=== PATIENT | male | born 1960 | race Caucasian/White ===

== ENCOUNTER 2024-08-02 18:01 | Inpatient (IN) | payer MEDICAID, OTHER ==
[~2024-08-02] VITALS: Ht 170.2 cm; Wt 90.0 kg
--- NOTE | 2024-08-02 18:32 | ED.PDOC ---
History of present illness HPI Comments 64y M who presents to the ED for chief complaint of hyperglycemia. Pt states he has been out of his diabetes medications for the past 1 month and states over this time period, he has been having increased weakness, malaise, dehydration and nausea. Pt now in the ED, has noted accu check after multiple measurements is noted to be 467 and 461. Pt in the ED, otherwise denies chest pain, shortness of breath, diaphoresis, palpitations, nausea, vomiting, fever, cough, or chills. Pt otherwise denies any other symptoms at this time. Chief Complaint: Hyperglycemia Time Seen by MD: 18:26 History of present illness: Nurses Notes, Medications, Allergies Allergies: Coded Allergies: NO KNOWN ALLERGIES (Unverified , 08/02/24) Information Source: Patient Mode of Arrival: Ambulatory Brought in by: self Timing: Hours Duration: Since onset Prehospital treatment: None [place]: None History of: Diabetes, Insulin use, Oral hypoglycemic use Modifying factors: Nothing Associated signs and symptoms: Nausea Past Medical History PAST MEDICAL HISTORY: DM Surgical History (Other): eye surgery Family History Family History: Family hx of Cancer Social History Smoker: Non-Smoker Alcohol: Occasionally Drugs: Denies Drug Use Lives In: Home Constitutional: reports: malaise, weakness; denies: chills, diaphoresis, fatigue, fever, sweats, others EENTM: denies: blurred vision, double vision, ear bleeding, ear discharge, ear drainage, ear pain, ear ringing, eye pain, eye redness, hearing loss, mouth pain, mouth swelling, nasal discharge, nose bleeding, nose congestion, nose pain, photophobia, tearing, throat pain, throat swelling, voice changes, others Respiratory: denies: cough, hemoptysis, orthopnea, SOB at rest, shortness of breath, SOB with excertion, stridor, wheezing, others Cardiovascular: denies: chest pain, dizzy spells, diaphoresis, Dyspnea on exertion, edema, irregular heart beat, left arm pain, lightheadedness, palpitations, PND, syncope, others Gastrointestinal: reports: nausea; denies: abdomen distended, abdominal pain, blood streaked bowels, constipated, diarrhea, dysphagia, difficulty swallowing, hematemesis, melena, poor appetite, poor fluid intake, rectal bleeding, rectal pain, vomiting, others Genitourinary: denies: burning, dysuria, flank pain, frequency, hematuria, incontinence, penile discharge, penile sore, pain, testicle pain, testicle swelling, urgency, others Neurological: denies: dizziness, fainting, headache, left sided numbness, left sided weakness, numbness, paresthesia, pre-existing deficit, right sided numbness, right sided weakness, seizure, speech problems, tingling, tremors, weakness, others Musculoskeletal: denies: back pain, gout, joint pain, joint swelling, muscle pain, muscle stiffness, neck pain, others Integumetry: denies: bruises, change in color, change in hair/nails, dryness, laceration, lesions, lumps, rash, wounds, others Allergic/Immunocompromised: denies: Difficulty Healing, Frequent Infections, Hives, Itching, others Hematologic/Lymphatic: denies: anemia, blood clots, easy bleeding, easy bruising, swollen glands, others Endocrine: reports: unexplained weight loss; denies: excessive hunger, excessive sweating, excessive thirst, excessive urination, flushing, intolerance to cold, intolerance to heat, unexplained weight gain, others Psychiatric: denies: anxiety, bipolar disorder, depression, hopeless, panic disorder, schizophrenia, sleepless, suicidal, others All Other Systems: Reviewed and Negative Physical Exam General Appearance: Moderate Distress HEENT: Normal ENT Inspection, Pharynx Normal, TMs Normal Neck: Full Range of Motion, Non-Tender, Normal, Normal Inspection Respiratory: Chest Non-Tender, Lungs Clear, No Accessory Muscle Use, No Respiratory Distress, Normal Breath Sounds Cardiovascular: No Edema, No JVD, No Murmur, No Gallop, Normal Peripheral Pulses, Regular Rate/Rhythm Breast Exam: Deferred Gastrointestinal: No Organomegaly, Non Tender, No Pulsatile Mass, Normal Bowel Sounds, Soft Genitalia: Deferred Pelvic: Deferred Rectal: Deferred Extremities: No calf tenderness, Normal capillary refill, Normal inspection, Normal range of motion, Non-tender, No pedal edema Musculoskeletal : Apperance: Normal Neurologic: Alert, chief transfer and pumphouse operator II-XII nml as Tested, No Motor Deficits, Normal Affect, Normal Mood, No Sensory Deficits Cerebellar Function: Normal Reflexes: Normal Skin: Dry, Normal Color, Warm Lymphatic: No Adenopathy Was a procedure done? Was a procedure done?: No Differential Diagnosis (DM) Differential Diagnosis: Dehydration, DKA, Electrolyte Abnormality, Encephalopathy, Hyperglycemia, Hyperosmolar State X-Ray, Labs, Meds, VS Vital Signs Date Time Temp Pulse Resp B/P (MAP) Pulse Ox O2 Delivery O2 Flow Rate FiO2 08/02/24 19:45 98.2 92 20 143/88 (106) 95 98.2 08/02/24 18:17 98.2 107 18 132/99 (110) 92 98.2 Lab Test 08/02/24 18:28 08/02/24 18:17 08/02/24 18:12 08/02/24 18:11 Range/Units White Blood Count 9.3 4.4-10.8 10^3/uL Red Blood Count 5.08 4.5-5.90 10^6/uL Hemoglobin 16.2 13.5-17.5 g/dL Hematocrit 46.0 41.0-53.0 % Mean Corpuscular Volume 90.4 80.0-100.0 fL Mean Corpuscular Hemoglobin 31.9 28.0-32.0 pg Mean Corpuscular Hemoglobin Concent 35.2 32.0-36.0 g/dL Red Cell Distribution Width 14.1 11.8-14.3 % Platelet Count 224 140-450 10^3/uL Mean Platelet Volume 9.7 6.9-10.8 fL Neutrophils (%) (Auto) 66.3 37.0-80.0 % Lymphocytes (%) (Auto) 24.6 10.0-50.0 % Monocytes (%) (Auto) 7.4 0.0-12.0 % Eosinophils (%) (Auto) 0.4 0.0-7.0 % Basophils (%) (Auto) 1.3 0.0-2.0 % Neutrophils # (Auto) 6.2 1.6-8.6 10 ^3/uL Lymphocytes # (Auto) 2.3 0.4-5.4 10 ^3/uL Monocytes # (Auto) 0.7 0-1.3 10 ^3/uL Eosinophils # (Auto) 0 0-0.8 10 ^3/uL Basophils # (Auto) 0.1 0-0.2 10 ^3/uL Nucleated Red Blood Cells 0.0 % Sodium Level 134 L 136-145 mmol/L Potassium Level 3.8 3.5-5.1 mmol/L Chloride Level 97 L 98-107 mmol/L Carbon Dioxide Level 26 20-31 mmol/L Anion Gap 11 5-15 Blood Urea Nitrogen 22 9-23 mg/dL Creatinine 1.32 H 0.700-1.30 mg/dL Glomerular Filtration Rate Calc 61 >90 mL/min BUN/Creatinine Ratio 16.7 10.0-20.0 Serum Glucose 497 *H 74-106 mg/dL Calcium Level 10.6 H 8.7-10.4 mg/dL Urine Color Light-yellow Yellow Urine Clarity Clear Clear Urine pH 5.5 5.0-9.0 Urine Specific [place] 1.028 1.001-1.035 Urine Protein Negative Negative Urine Ketones Negative Negative Urine Blood Negative Negative /uL Urine Nitrite Negative Negative Urine Bilirubin Negative Negative Urine Urobilinogen Normal Negative mg/dL Urine Leukocyte Esterase Negative Negative /uL Urine RBC <1 0 - 3 /hpf Urine Microscopic WBC < 1 0-3 /HPF Urine Squamous Epithelial Cells None seen <5 /hpf Urine Bacteria None seen None Seen /hpf Urine Glucose 4+ H Normal mg/dL POC Glucose 461 *H 467 *H 70-106 mg/dl Current Medications Medications (Trade) Dose Ordered Sig/Lady Route Start Time Stop Time Status Last Admin Sodium Chloride 1,000 ml @ 1,000 mls/hr Q1H ONCE IV 08/02/24 18:30 08/02/24 19:29 DC 08/02/24 19:48 Insulin Human Regular (InsuLIN R) 5 units ONCE ONCE IV 08/02/24 18:30 08/02/24 18:31 DC 08/02/24 19:58 The urine test is negative. The patient was given a bolus of normal saline at 1 L bolus The patient was given insulin 5 units IV push The patient was hyperglycemic at 497 The chemistry panel shows a creatinine of 1.32 The patient's CBC is within normal limits. At this time, the patient was being admitted The patient was glucose remains elevated and we will continue to monitor the patient's diabetes Images Reviewed?: Images reviewed and evaluated by me Time of 1ST Reevaluation: 19:00 Reevaluation 1ST: Unchanged Patient Education/Counseling: Diagnosis, Treatment, Prognosis Family Education/Counseling: No Family Present Departure 1 Departure Time of Disposition: 20:36 Impression: Primary Impression: Uncontrolled diabetes mellitus Qualified Codes: E13.65 - Other specified diabetes mellitus with hyperglyce luz Disposition: 09 ADMITTED INPATIENT Admit to: Tele Condition: Fair Critical Care Note Critical Care Time?: No Stability Stability form required: Yes Unstable for transfer: Telemetry monitoring (Telemetry monitoring required), ED Physician Assesment (Clinical assesment) Heart Score Heart Score: Heart Score Response (Comments) Value History N/A 0 EKG N/A 0 Age N/A 0 Risk Factors N/A 0 Troponin N/A 0 Total 0 I personally scribed for JEAN GUZMAN MD ([email or web address]) on 08/02/24 at 18:31. Electronically submitted by Medina Fan ([email or web address]). JEAN GUZMAN MD August 02, 2024 18:31
[2024-08-02 18:51] LABS: Basophils # (auto) 0.1 10 ^3/uL (0-0.2); Basophils % (auto) 1.3 % (0.0-2.0); Eosinophils # (auto) 0 10 ^3/uL (0-0.8); Eosinophils % (auto) 0.4 % (0.0-7.0); Hemoglobin 16.2 g/dL (13.5-17.5); Lymphocytes # (auto) 2.3 10 ^3/uL (0.4-5.4); Lymphocytes % (auto) 24.6 % (10.0-50.0); Mean Corpuscular Hemoglobin 31.9 pg (28.0-32.0); Mean Corpuscular Hgb Conc. 35.2 g/dL (32.0-36.0); Mean Corpuscular Volume 90.4 fL (80.0-100.0); Monocytes # (auto) 0.7 10 ^3/uL (0-1.3); Monocytes % (auto) 7.4 % (0.0-12.0); Neutrophils # (auto) 6.2 10 ^3/uL (1.6-8.6); Neutrophils % (auto) 66.3 % (37.0-80.0); Platelet Count (auto) 224 10^3/uL (140-450); Red Blood Cells 5.08 10^6/uL (4.5-5.90); Red Cell Distribution Width 14.1 % (11.8-14.3); White Blood Cell 9.3 10^3/uL (4.4-10.8)
[2024-08-02 19:00] LABS: Potassium 3.8 mmol/L (3.5-5.1)
[2024-08-02 19:01] LABS: Anion Gap 11 (5-15); Carbon Dioxide 26 mmol/L (20-31)
[2024-08-02 19:06] LABS: BUN/Creatinine Ratio 16.7 (10.0-20.0); Blood Urea Nitrogen 22 mg/dL (9-23)
[2024-08-02 19:20] LABS: Calcium 10.6 mg/dL (8.7-10.4); Chloride 97 mmol/L (98-107); Sodium 134 mmol/L (136-145)
[2024-08-02 19:26] LABS: Glucose 497 mg/dL (74-106)
[2024-08-02 19:42] LABS: Urine Bacteria None Seen /hpf (None Seen)
[2024-08-02] MEDS: SODIUM CHLORIDE 0.9% 1,000 ML IV ONE (19:48)
[2024-08-02] MEDS: InsuLIN REG 1unit/0.01ml Soln (100units/ml) IV ONE (19:58)
[2024-08-02 20:01] LABS: Urine Blood Negative /uL (Negative); Urine Clarity Clear (Clear); Urine Color Light-Yellow (Yellow); Urine Protein, UAD Negative (Negative); Urine Specific Gravity 1.028 (1.001-1.035); Urine Squamous Epithelial Cell None Seen /hpf (<5); Urine Urobilinogen Normal (Negative); Urine WBC < 1 /HPF (0-3); Urine pH 5.5 (5.0-9.0)
[2024-08-02] MEDS ORDERED: DEXTROSE (50%) 50ML SYRG IV PRN (20:45)
[2024-08-02] MEDS ORDERED: ACETAMINOPHEN 325 MG TAB PO PRN (20:45)
[2024-08-02] MEDS ORDERED: DOCUSATE SOD 100 MG CAP PO PRN (20:45)
[2024-08-02] MEDS ORDERED: ONDANSETRON HCL 4 MG/2 ML VIAL IV PRN (20:45)
--- NOTE | 2024-08-02 21:06 | DVHHP2 ---
History of Present Illness Reason for Visit: Diabetes mellitus with hyperglycemia History of Present Illness The patient is a 64-year-old male with past medical history of diabetes mellitus who presented to [facility] ED with complaint of hyperglycemia. Patient reports he has been out of his diabetic medications for the past 1 month and non experiencing increased weakness, malaise, dehydration, nausea, getting worse that prompted this visit. Patient was seen and evaluated in the ED, laboratory data shows WBC 9.3, platelets 224, sodium 134, potassium 3.8, BUN 22, creatinine 1.32, glucose 497, calcium 10.6. Patient was given regular insulin 5 units subQ, please see medication orders section in the computer. On my assessment, patient denied chest pain, no headache, no dizziness, no diaphoresis, no blurry vision, no shortness of breath, no nausea, no vomiting, no fever, no chills. Patient was admitted for further evaluation and medical management. Past Medical History DM Past Surgical History Eye surgery Family History Reviewed, noncontributory to the management of this case. Past Social History The patient lives at home, denies smoking, alcohol or illicit drugs abuse. Review of Systems Constitutional: Yes: Weakness, Malaise; No: Fever, Chills, Sweats, Other Eyes: No: Pain, Vision change, Conjunctivae inflammation, Eyelid inflammation, Other, Redness ENT: No: Ear pain, Ear discharge, Nose pain, Nose discharge, Nose congestion, Mouth pain, Mouth swelling, Throat pain, Throat swelling, Other Respiratory: No: Cough, Dry, Shortness of breath, SOB with excertion, Wheezing, Hemoptysis, Pleuritic Pain, Sputum, Wheezing, Other Cardiovascular: No: Chest Pain, Palpitations, Orthopnea, Paroxysmal Noc. Dys pnea, Edema, Lt Headedness, Other Gastrointestinal: Nausea; No: Vomiting, Abdominal Pain, Diarrhea, Constipation, Melena, Hematochezia, Other Genitourinary: No Dysuria, No Frequency, No Incontinence, No Hematuria, No Retention, No Other Musculoskeletal: No: other, neck pain, shoulder pain, arm pain, back pain, hand pain, leg pain, foot pain Skin: No: Rash, Lesions, Jaundice, Bruising, Other Neurological: No: Weakness, Numbness, Incoordination, Change in speech, Confusion, Seizures, Other Allergies: Coded Allergies: NO KNOWN ALLERGIES (Unverified , 08/02/24) Medications Current Medications Medications Dose Ordered Sig/Lady Route Start Time Stop Time Status Last Admin Dose Admin Diagnostic Test (Pha) 1 strip IQ4HR 08/03/24 00:00 Insulin Human Regular IQ4HR SC 08/03/24 00:00 Dextrose 50 ml UD PRN IV 08/02/24 20:45 Sodium Chloride 1,000 ml @ 60 mls/hr [id number] IV 08/02/24 20:45 Acetaminophen/ Hydrocodone Bitart 1 tab Q4HP PRN PO 08/02/24 20:45 Ondansetron HCl 4 mg Q4HP PRN IV 08/02/24 20:45 Docusate Sodium 100 mg BIDPRN PRN PO 08/02/24 20:45 Acetaminophen 650 mg Q6HP PRN PO 08/02/24 20:45 Exam Vital Signs Vital Signs Date Time Temp Pulse Resp B/P (MAP) Pulse Ox O2 Delivery O2 Flow Rate FiO2 08/02/24 19:45 98.2 92 20 143/88 (106) 95 98.2 08/02/24 19:45 Room Air* 0 21 General Appearance: Alert, Oriented X3, Cooperative, No acute distress HEENT: Atraumatic, PERRLA, EOMI, Mucous membr. moist/pink Respiratory: Clear to auscultation, Normal air movement Cardiovascular: Regular rate, Normal S1, Normal S2, No murmurs Abdominal: Normal bowel sounds, Soft, No tenderness, No hepatospenomegaly, No masses Extremities: No clubbing, No cyanosis, No edema, Normal pulses, No tenderness/swelling Skin: No rashes, No breakdown, No significant lesion Neuro: Normal gait, Normal speech, Strength at 5/5 X4 ext, Normal tone, Sensation intact, Cranial nerves 3-12 NL, Reflexes 2+ Psych/Mental Status: Mental status NL, Mood NL Labs/Xrays Labs Test 08/02/24 20:38 08/02/24 18:28 08/02/24 18:17 Range/Units POC Glucose 377 H 70-106 mg/dl White Blood Count 9.3 4.4-10.8 10^3/uL Red Blood Count 5.08 4.5-5.90 10^6/uL Hemoglobin 16.2 13.5-17.5 g/dL Hematocrit 46.0 41.0-53.0 % Mean Corpuscular Volume 90.4 80.0-100.0 fL Mean Corpuscular Hemoglobin 31.9 28.0-32.0 pg Mean Corpuscular Hemoglobin Concent 35.2 32.0-36.0 g/dL Red Cell Distribution Width 14.1 11.8-14.3 % Platelet Count 224 140-450 10^3/uL Mean Platelet Volume 9.7 6.9-10.8 fL Neutrophils (%) (Auto) 66.3 37.0-80.0 % Lymphocytes (%) (Auto) 24.6 10.0-50.0 % Monocytes (%) (Auto) 7.4 0.0-12.0 % Eosinophils (%) (Auto) 0.4 0.0-7.0 % Basophils (%) (Auto) 1.3 0.0-2.0 % Neutrophils # (Auto) 6.2 1.6-8.6 10 ^3/uL Lymphocytes # (Auto) 2.3 0.4-5.4 10 ^3/uL Monocytes # (Auto) 0.7 0-1.3 10 ^3/uL Eosinophils # (Auto) 0 0-0.8 10 ^3/uL Basophils # (Auto) 0.1 0-0.2 10 ^3/uL Nucleated Red Blood Cells 0.0 % Sodium Level 134 L 136-145 mmol/L Potassium Level 3.8 3.5-5.1 mmol/L Chloride Level 97 L 98-107 mmol/L Carbon Dioxide Level 26 20-31 mmol/L Anion Gap 11 5-15 Blood Urea Nitrogen 22 9-23 mg/dL Creatinine 1.32 H 0.700-1.30 mg/dL Glomerular Filtration Rate Calc 61 >90 mL/min BUN/Creatinine Ratio 16.7 10.0-20.0 Serum Glucose 497 *H 74-106 mg/dL Calcium Level 10.6 H 8.7-10.4 mg/dL Urine Color Light-yellow Yellow Urine Clarity Clear Clear Urine pH 5.5 5.0-9.0 Urine Specific [place] 1.028 1.001-1.035 Urine Protein Negative Negative Urine Ketones Negative Negative Urine Blood Negative Negative /uL Urine Nitrite Negative Negative Urine Bilirubin Negative Negative Urine Urobilinogen Normal Negative mg/dL Urine Leukocyte Esterase Negative Negative /uL Urine RBC <1 0 - 3 /hpf Urine Microscopic WBC < 1 0-3 /HPF Urine Squamous Epithelial Cells None seen <5 /hpf Urine Bacteria None seen None Seen /hpf Urine Glucose 4+ H Normal mg/dL Assessment/Plan Assessment/Plan Uncontrolled diabetes mellitus Other specified diabetes mellitus with hyperglycemia Plan 1. Admit to telemetry unit 2. Breathing treatment 3. Pain control management 4. Management of fluids and electrolytes 5. Consultation for hospitalist 6. Diagnostic tests chest x-ray 7. DVT prophylaxis on SCDs 8. Repeat labs hemoglobin A1c, CBC, CMP in a.m. 9. Continue with current medical management 10. Treatment plan discussed with patient and RN. Patient verbalized understanding. Plan discussed with: Patient, Other (RN) My Orders Orders - CRISTIANE MARES DNP Procedure Category Date Status Time Hemoglobin A1c LAB 08/02/24 In Process 20:44 Consistent DIET 08/03/24 Transmitted Carb(Ccho)Diabetes Breakfast Glucose Blood PHA 08/03/24 In Process (Accu-Chek Comfort 00:00 Insulin R (Human) PHA 08/03/24 In Process (Insulin R) 00:00 Dextrose 50% Syringe PHA 08/02/24 In Process 20:45 Allergies NOLA 08/02/24 In Process 20:44 Code Status CODE 08/02/24 Transmitted 20:44 Sodium Chloride 0.9% PHA 08/02/24 In Process 20:45 Oxygen Per Hour RT 08/02/24 Transmitted 20:44 Hydrocodone-Acet PHA 08/02/24 In Process 5/325mg Tab ([place] 20:45 Ondansetron Hcl PHA 08/02/24 In Process (Zofran) 20:45 Docusate Sodium PHA 08/02/24 In Process Capsule (Colace 20:45 Complete Blood Count LAB 08/03/24 Verified 04:00 Comprehensive LAB 08/03/24 Verified Metabolic Panel 04:00 Condition: Serious NOLA 08/02/24 In Process 20:44 Acetaminophen Tablet PHA 08/02/24 In Process (Tylenol Tablet) 20:45 Bedrest With Bathroom NOLA 08/02/24 In Process Privileg 20:44 Sequential NOLA 08/02/24 In Process Compression Device Admit ADMIT 08/02/24 Transmitted 21:03 Nitroglycerin PHA 08/02/24 Transmitted Sublingual (Ntrostat 21:15 Morphine Sulfate PHA 08/02/24 Transmitted Injection 21:15 Notify Of Changes NOLA 08/02/24 In Process From Base 21:03 Sample Finisher For [facility] 08/02/24 In Process 24 Hours 21:03 Emergency Dysrhythmia [facility] 08/02/24 In Process Protocol 21:03 Rhythm Strips Once [facility] 08/02/24 In Process Every Shift 21:03 Oxygen By Nasal RT 08/02/24 Transmitted Cannula 21:03 Problem List: (1) Uncontrolled diabetes mellitus (2) Other specified diabetes mellitus with hyperglycemia Date of Service: August 02, 2024 Billing Provider: CRISTIANE MARES DNP Common Visit Codes: [id number] INP/OBS CARE (HIGH) CRISTIANE MARES DNP August 02, 2024 21:06
[2024-08-02] MEDS ORDERED: MORPHINE SULFATE INJ 2 MG/ml SYRG IV PRN (21:15)
[2024-08-02] MEDS ORDERED: NITROGLYCERIN 0.4 MG SL TAB SL PRN (21:15)
[2024-08-02] MEDS: SODIUM CHLORIDE 0.9% 1,000 ML IV SCH (21:31)
[2024-08-03] MEDS: InsuLIN REG 1unit/0.01ml Soln (100units/ml) SC SCH (00:13)
[2024-08-03] MEDS: ACCU-CHEK COMFORT CURVE STRIP VI SCH (00:13)
[2024-08-03] MEDS: HYDROcodone-ACET 5/325MG TAB PO PRN (00:23)
[2024-08-03] MEDS ORDERED: GLIP10TA9 PO ×2 (00:26→10:50)
[2024-08-03] MEDS ORDERED: METF-372 PO ×2 (00:26→10:50)
[2024-08-03 01:01] VITALS: BP 129/73; PULSE 78; RESP 18; TEMP 97.9; O2SAT 93
[2024-08-03 05:00] VITALS: BP 113/72; PULSE 70; RESP 18; TEMP 97.9; O2SAT 94
[2024-08-03 06:15] LABS: Basophils # (auto) 0 10 ^3/uL (0-0.2); Basophils % (auto) 0.4 % (0.0-2.0); Eosinophils # (auto) 0.1 10 ^3/uL (0-0.8); Eosinophils % (auto) 1.2 % (0.0-7.0); Hematocrit 41.4 % (41.0-53.0); Hemoglobin 14.3 g/dL (13.5-17.5); Lymphocytes # (auto) 2.7 10 ^3/uL (0.4-5.4); Lymphocytes % (auto) 33.3 % (10.0-50.0); Mean Corpuscular Hemoglobin 31.2 pg (28.0-32.0); Mean Corpuscular Hgb Conc. 34.7 g/dL (32.0-36.0); Mean Corpuscular Volume 89.9 fL (80.0-100.0); Monocytes # (auto) 0.7 10 ^3/uL (0-1.3); Monocytes % (auto) 8.4 % (0.0-12.0); Neutrophils # (auto) 4.6 10 ^3/uL (1.6-8.6); Neutrophils % (auto) 56.7 % (37.0-80.0); Platelet Count (auto) 195 10^3/uL (140-450); Red Cell Distribution Width 14.3 % (11.8-14.3); White Blood Cell 8.1 10^3/uL (4.4-10.8)
[2024-08-03 06:23] LABS: Alanine Aminotransferase 29 U/L (7-40); Alkaline Phosphatase 71 U/L (46-116); Anion Gap 11 (5-15); BUN/Creatinine Ratio 15.9 (10.0-20.0); Blood Urea Nitrogen 11 mg/dL (9-23); Carbon Dioxide 26 mmol/L (20-31); Chloride 103 mmol/L (98-107); Sodium 140 mmol/L (136-145); Total Protein 6.8 g/dL (5.7-8.2)
[2024-08-03 06:24] LABS: Albumin 4.3 g/dL (3.2-4.8); Aspartate Aminotransferase 18 U/L (13-40); Bilirubin, Total 0.8 mg/dL (0.2-1.0)
[2024-08-03 06:40] LABS: Glucose 228 mg/dL (74-106); Potassium 3.3 mmol/L (3.5-5.1)
[2024-08-03 08:00] VITALS: PULSE 68
[2024-08-03] MEDS ORDERED: GABA-1308 PO ×2 (08:09→10:50)
[2024-08-03 08:43] VITALS: BP 124/68; PULSE 68; RESP 16; TEMP 98.3; O2SAT 91
[2024-08-03] MEDS ORDERED: INSU70IN3 SC (10:50)
[2024-08-03] MEDS: POTASSIUM CHL 20 Meq TABLET PO ONE (11:22)
--- NOTE | 2024-08-03 16:19 | DVHDS2 ---
Discharge Summary Date of Admission August 02, 2024 at 21:03 Date of Discharge: August 03, 2024 Labs/Diagnostic Data: Laboratory Results Test 08/03/24 11:14 08/03/24 05:04 08/02/24 18:28 08/02/24 18:17 POC Glucose 157 mg/dl (70-106) White Blood Count 8.1 10^3/uL (4.4-10.8) Red Blood Count 4.60 10^6/uL (4.5-5.90) Hemoglobin 14.3 g/dL (13.5-17.5) Hematocrit 41.4 % (41.0-53.0) Mean Corpuscular Volume 89.9 fL (80.0-100.0) Mean Corpuscular Hemoglobin 31.2 pg (28.0-32.0) Mean Corpuscular Hemoglobin Concent 34.7 g/dL (32.0-36.0) Red Cell Distribution Width 14.3 % (11.8-14.3) Platelet Count 195 10^3/uL (140-450) Mean Platelet Volume 9.6 fL (6.9-10.8) Neutrophils (%) (Auto) 56.7 % (37.0-80.0) Lymphocytes (%) (Auto) 33.3 % (10.0-50.0) Monocytes (%) (Auto) 8.4 % (0.0-12.0) Eosinophils (%) (Auto) 1.2 % (0.0-7.0) Basophils (%) (Auto) 0.4 % (0.0-2.0) Neutrophils # (Auto) 4.6 10 ^3/uL (1.6-8.6) Lymphocytes # (Auto) 2.7 10 ^3/uL (0.4-5.4) Monocytes # (Auto) 0.7 10 ^3/uL (0-1.3) Eosinophils # (Auto) 0.1 10 ^3/uL (0-0.8) Basophils # (Auto) 0 10 ^3/uL (0-0.2) Nucleated Red Blood Cells 0.0 % Sodium Level 140 mmol/L (136-145) Potassium Level 3.3 mmol/L (3.5-5.1) Chloride Level 103 mmol/L (98-107) Carbon Dioxide Level 26 mmol/L (20-31) Anion Gap 11 (5-15) Blood Urea Nitrogen 11 mg/dL (9-23) Creatinine 0.69 mg/dL (0.700-1.30) Glomerular Filtration Rate Calc 104 mL/min (>90) BUN/Creatinine Ratio 15.9 (10.0-20.0) Serum Glucose 228 mg/dL (74-106) Calcium Level 9.0 mg/dL (8.7-10.4) Total Bilirubin 0.8 mg/dL (0.2-1.0) Aspartate Amino Transferase (AST) 18 U/L (13-40) Alanine Aminotransferase (ALT) 29 U/L (7-40) Alkaline Phosphatase 71 U/L (46-116) Total Protein 6.8 g/dL (5.7-8.2) Albumin 4.3 g/dL (3.2-4.8) Hemoglobin A1c 9.7 % A1C (<5.7) Urine Color Light-yellow (Yellow) Urine Clarity Clear (Clear) Urine pH 5.5 (5.0-9.0) Urine Specific [place] 1.028 (1.001-1.035) Urine Protein Negative (Negative) Urine Ketones Negative (Negative) Urine Blood Negative /uL (Negative) Urine Nitrite Negative (Negative) Urine Bilirubin Negative (Negative) Urine Urobilinogen Normal mg/dL (Negative) Urine Leukocyte Esterase Negative /uL (Negative) Urine RBC <1 /hpf (0 - 3) Urine Microscopic WBC < 1 /HPF (0-3) Urine Squamous Epithelial Cells None seen /hpf (<5) Urine Bacteria None seen /hpf (None Seen) Urine Glucose 4+ mg/dL (Normal) Other Laboratory Tests 08/03/24 05:04 Brief Hx & Hospital Course: Final diagnoses: Uncontrolled diabetes Noncompliance Hyponatremia Hypokalemia Acute kidney injury hemodynamically mediated Hypercalcemia Hyperglycemia without DKA Hospital course: The patient was admitted because his blood sugar was extremely elevated according to him it was in the 500s at home and here it was 467. Apparently he ran out of his insulin 70 30 about a month ago and could not get a refill He also takes metformin and glipizide at home He was given insulin sliding scale and he was given IV fluids which resolved his GILLIAN He was asymptomatic and he wanted to go home A prescription was sent for him for his insulin 70 30 to his pharmacy in addition to his regular medications which include metformin and glipizide and gabapentin He said he will follow up with his primary care physician as soon as he can Hemoglobin A1c was 9.7 Condition at Discharge: Stable Final Diagnosis/Problems List Uncontrolled DM Discharge Disposition: Home SNF Discharge Will this Physician continue t: No Discharge Instruct/Medications Diet: Consistent carbohydrate Activity: No Restrictions, As Tolerated Follow Up/Referral: PCP SHIRLEY Medications: Same home meds Discharge Statement: "Patient was advised to return to the ER or call 911 if any headaches, dizziness, shortness of breath, chest pain, abdominal pain, bleeding, fevers, or worsening of medical condition. Patient was counseled about treatment plan, medications, possible side effects, patient�verbalized understanding. All questions were answered to the best of my ability. This discharge took greater then 30 minutes in planning, reviewing documentation, counseling the patient, and discussing with other team members." ASSESSMENT ASSESSMENT Assessment Uncontrolled DM Date of Service: August 03, 2024 Billing Provider: PADMINI GOSS MD Common Visit Codes: 40475-PLQ/OBS DISCH DAY >30min PADMINI GOSS MD August 03, 2024 16:18
== END 2024-08-03 13:05 | disposition home or self-care (01) | DRG 420 ==
LOC: ER 18:05 → OVERFLOW 21:03 → TELE-CENTR 21:05
PROVIDERS: ADMIT Internal Medicine Geriatric Medicine; ATTEND Internal Medicine Geriatric Medicine
DX: E11.00 Type 2 diabetes mellitus with hyperosmolarity without nonketotic hyperglycemic-hyperosmolar coma (NKHHC) (principal); N17.0 Acute kidney failure with tubular necrosis; E11.65 Type 2 diabetes mellitus with hyperglycemia; E87.1 Hypo-osmolality and hyponatremia; E86.0 Dehydration; E87.6 Hypokalemia; E83.52 Hypercalcemia; Z79.4 Long term (current) use of insulin; Z91.148 Patient's other noncompliance with medication regimen for other reason
CPT/HCPCS: 36415; 80048; 80053; 81001; 82962; 83036; 85025; 96361; 96374; G0378; J1815